=== PATIENT | female | born 1945 | race Caucasian/White ===

== ENCOUNTER 2017-02-09 05:27 | Inpatient (IN) | payer MEDICARE ==
[~2017-02-09] VITALS: Ht 152.4 cm; Wt 70.5 kg
[~2017-02-09 05:27] MED LIST: ACET-2247 PO; AMIO200T44 PO; ASCO500 PO; ASPI81 PO; ATOR40TA28 PO; BUME1TAB17 PO; CHOL200016 PO; CIP250 PO; GABA-533 PO; HEPA500018 SQ; HYDR-305 PO; LACT1TAB11 PO; METO25 PO; MULT-1203 PO; OXYB5 PO; ROPI1TAB11 PO; ZINC220 PO
[2017-02-09] MEDS ORDERED: SODIUM CHLORIDE 0.9% 1,000 ML IV ONE ×2 (05:30→06:38)
[2017-02-09] MEDS ORDERED: MINERAL OIL 10 ML VIAL TP ONE (06:38)
[2017-02-09] MEDS ORDERED: BUPIVACAINE HCL/PF 0.25% 30 ML VIAL ONE (06:39)
[2017-02-09 07:33] LABS: GLUCOSE,POINT OF CARE 98 MG/DL (70-110)
[2017-02-09] MEDS ORDERED: BUPIVACAINE 0.25%/EPI 1:200,000/PF 10 ML VIAL ONE ×4 (07:37→08:07)
[2017-02-09] MEDS ORDERED: HYDROmorphone 2 MG/ML SYRINGE IVP PRN (09:00)
[2017-02-09] MEDS ORDERED: OxyCODONE HCL/ACETAMINOPHEN 5-325 MG TABLET PO PRN ×2 (09:00→11:30)
[2017-02-09] MEDS ORDERED: MEPERIDINE-PF 25 MG/ML SYRINGE IVP PRN (09:00)
[2017-02-09] MEDS ORDERED: PANTOPRAZOLE SODIUM 40 MG DR TABLET PO SCH (09:00)
[2017-02-09] MEDS ORDERED: 0.9% SODIUM CHLORIDE 10 ML SYRINGE IVP PRN (09:00)
[2017-02-09] MEDS ORDERED: ONDANSETRON HCL 4 MG/2 ML VIAL IVP PRN ×2 (09:00→11:30)
[2017-02-09] MEDS ORDERED: FentaNYL CITRATE-PF 100 MCG/2 ML VIAL ONE (09:24)
[2017-02-09] MEDS: FentaNYL CITRATE-PF 100 MCG/2 ML VIAL IVP PRN ×2 (09:29→09:41)
[2017-02-09 10:39] VITALS: BP 113/54
[2017-02-09] MEDS: METOPROLOL TARTRATE 25 MG TABLET PO SCH ×2 (10:50→21:06)
[2017-02-09] MEDS: ENOXAPARIN SODIUM 40 MG/0.4 ML PF SYRINGE SQ SCH (10:51)
[2017-02-09] MEDS ORDERED: ACETAMINOPHEN 325 MG TABLET PO PRN (11:30)
[2017-02-09] MEDS ORDERED: ALBUTEROL SULFATE 2.5 MG/0.5 ML NEB SOLUTION NEB PRN (11:30)
[2017-02-09] MEDS ORDERED: MAGNESIUM HYDROXIDE SUSPENSION 30 ML UDCUP PO PRN (11:30)
[2017-02-09] MEDS ORDERED: DEXTROSE 50%-WATER 25 GM/50 ML SYRINGE IVP PRN (11:45)
[2017-02-09] MEDS: ROPINIRole HCL 1 MG TABLET PO SCH ×2 (12:00→17:57)
[2017-02-09] MEDS: OxyCODONE HCL/ACETAMINOPHEN 5-325 MG TABLET PO PRN (15:26)
[2017-02-09] MEDS: HYDROCODONE/ACETAMINOPHEN 5-325 MG TABLET PO PRN ×3 (16:52→21:12)
[2017-02-09 17:48] LABS: GLUCOSE,POINT OF CARE 113 MG/DL (70-110)
[2017-02-09 17:48] LABS: GLUCOSE,POINT OF CARE 130 MG/DL (70-110)
[2017-02-09 19:28] VITALS: BP 114/52
[2017-02-09] MEDS ORDERED: CIPROFLOXACIN HCL 250 MG TABLET PO SCH (21:00)
[2017-02-09] MEDS ORDERED: OXYBUTYNIN CHLORIDE 5 MG TABLET PO SCH (21:00)
[2017-02-09] MEDS: ZINC SULFATE 220 MG CAPSULE PO SCH (21:06)
[2017-02-09] MEDS: DOCUSATE SODIUM 100 MG CAPSULE PO SCH (21:06)
[2017-02-09] MEDS: GABAPENTIN 400 MG CAPSULE PO SCH (21:06)
[2017-02-09] MEDS ORDERED: EPHEDrine SULFATE 50 MG/ML VIAL IM ONE (21:36)
[2017-02-09] MEDS ORDERED: ONDANSETRON HCL 4 MG/2 ML VIAL IVP ONE (21:36)
[2017-02-09] MEDS ORDERED: LIDOCAINE HCL/PF 2% 5 ML VIAL IM ONE (21:36)
[2017-02-09] MEDS ORDERED: PROPOFOL 1% 20 ML VIAL IVP ONE (21:36)
[2017-02-09] MEDS ORDERED: FentaNYL CITRATE-PF 100 MCG/2 ML VIAL IVP ONE (22:27)
[2017-02-09] MEDS ORDERED: MIDAZOLAM HCL 2 MG/2 ML VIAL IVP ONE (22:27)
[2017-02-10] VITALS (7 sets, daily range): BP systolic 113–142; BP diastolic 51–63
[2017-02-10] MEDS: ROPINIRole HCL 1 MG TABLET PO SCH ×5 (00:23→23:14)
[2017-02-10] MEDS: ZOLPIDEM TARTRATE 5 MG TABLET PO PRN (00:31)
[2017-02-10] MEDS: OxyCODONE HCL/ACETAMINOPHEN 5-325 MG TABLET PO PRN ×6 (00:31→23:44)
[2017-02-10 06:28] LABS: BASOPHILS % (AUTO) 0.8 % (0.0-2.0); EOSINOPHILS % (AUTO) 4.5 % (1.0-6.0); HEMATOCRIT 25.7 % (36-46); HEMOGLOBIN 8.4 g/dL (12.0-16.0); LYMPHOCYTES # (AUTO) 1.4 K/uL (1.0-4.8); LYMPHOCYTES % (AUTO) 23.4 % (22.0-44.0); MEAN CORPUSCULAR HEMOGLOBIN 27.5 pg (26.0-34.0); MEAN CORPUSCULAR HGB CONC 32.6 G/dL (31.0-37.0); MEAN CORPUSCULAR VOLUME 84 fL (80-100); MONOCYTES # (AUTO) 0.5 K/uL (0.1-1.0); MONOCYTES % (AUTO) 8.9 % (2.0-9.0); NEUTROPHILS # (AUTO) 3.8 K/uL (1.8-7.7); NEUTROPHILS % (AUTO) 62.4 % (40.0-70.0); PLATELET COUNT (AUTO) 262 K/uL (150-450); RED BLOOD CELL COUNT(AUTO) 3.05 MIL/uL (4.00-5.20); RED CELL DISTRIBUTION WIDTH 17.7 % (11.5-14.5); WHITE BLOOD COUNT (AUTO) 6.1 K/uL (4.5-11.0)
[2017-02-10 06:49] LABS: ALBUMIN 2.7 g/dL (3.4-5.0); BILIRUBIN,TOTAL 0.2 mg/dL (0.1-1.0); CALCIUM, TOTAL 8.4 mg/dL (8.8-10.5); CREATININE 1.54 mg/dL (0.60-1.30); MAGNESIUM 1.9 mg/dL (1.80-2.40); POTASSIUM 5.2 mmol/L (3.5-5.1); TOTAL PROTEIN, SERUM 6.7 g/dL (6.4-8.2)
[2017-02-10] MEDS ORDERED: SODIUM CHLORIDE 0.9% 1,000 ML IV ONE (07:00)
[2017-02-10] MEDS: OXYGEN THERAPY IH SCH (08:00)
[2017-02-10] MEDS: ATORVASTATIN CALCIUM 40 MG TABLET PO SCH (08:16)
[2017-02-10] MEDS: MULTIVITAMINS, THERAPEUTIC TABLET PO SCH (08:16)
[2017-02-10] MEDS: PANTOPRAZOLE SODIUM 40 MG DR TABLET PO SCH (08:16)
[2017-02-10] MEDS: METOPROLOL TARTRATE 25 MG TABLET PO SCH ×2 (08:16→19:37)
[2017-02-10] MEDS: ZINC SULFATE 220 MG CAPSULE PO SCH ×2 (08:16→19:37)
[2017-02-10] MEDS: CHOLECALCIFEROL (VIT D3) 2,000 UNITS TABLET PO SCH (08:16)
[2017-02-10] MEDS: LACTOBACILLUS ACIDOPHILUS/BULGARICUS TABLET PO SCH (08:16)
[2017-02-10] MEDS: ASCORBIC ACID 500 MG TABLET PO SCH (08:16)
[2017-02-10] MEDS: ASPIRIN 81 MG CHEWABLE TABLET PO SCH (08:16)
[2017-02-10] MEDS: BUMETANIDE 1 MG TABLET PO SCH (08:16)
[2017-02-10] MEDS: ENOXAPARIN SODIUM 40 MG/0.4 ML PF SYRINGE SQ SCH (08:17)
[2017-02-10] MEDS: DOCUSATE SODIUM 100 MG CAPSULE PO SCH ×2 (08:19→19:36)
[2017-02-10] MEDS ORDERED: ENOXAPARIN SODIUM 40 MG/0.4 ML PF SYRINGE SQ SCH (09:00)
[2017-02-10] MEDS ORDERED: AMIODARONE HCL 200 MG TABLET PO SCH (09:00)
[2017-02-10 11:36] LABS: GLUCOSE,POINT OF CARE 100 MG/DL (70-110)
[2017-02-10 11:47] LABS: GLUCOSE,POINT OF CARE 95 MG/DL (70-110)
[2017-02-10 12:18] LABS: GLUCOSE,POINT OF CARE 92 MG/DL (70-110)
[2017-02-10 12:38] LABS: RBC MORPHOLOGY COMMENT ABNORMAL RBC MORPH
[2017-02-10] MEDS: GABAPENTIN 400 MG CAPSULE PO SCH (19:36)
[2017-02-11] MEDS: ZOLPIDEM TARTRATE 5 MG TABLET PO PRN (02:00)
[2017-02-11] MEDS: HYDROCODONE/ACETAMINOPHEN 5-325 MG TABLET PO PRN ×2 (02:01→17:08)
[2017-02-11 04:25] VITALS: BP 139/58
[2017-02-11 04:38] LABS: GLUCOSE,POINT OF CARE 106 MG/DL (70-110)
[2017-02-11 04:38] LABS: GLUCOSE,POINT OF CARE 91 MG/DL (70-110)
[2017-02-11] MEDS: OxyCODONE HCL/ACETAMINOPHEN 5-325 MG TABLET PO PRN (05:55)
[2017-02-11] MEDS: ROPINIRole HCL 1 MG TABLET PO SCH ×3 (05:56→17:27)
[2017-02-11 07:30] VITALS: BP 140/58
[2017-02-11] MEDS: OXYGEN THERAPY IH SCH ×2 (08:00→19:56)
[2017-02-11] MEDS: ENOXAPARIN SODIUM 40 MG/0.4 ML PF SYRINGE SQ SCH (08:47)
[2017-02-11] MEDS: LACTOBACILLUS ACIDOPHILUS/BULGARICUS TABLET PO SCH (08:47)
[2017-02-11] MEDS: ZINC SULFATE 220 MG CAPSULE PO SCH ×2 (08:48→19:55)
[2017-02-11] MEDS: METOPROLOL TARTRATE 25 MG TABLET PO SCH ×2 (08:48→19:56)
[2017-02-11] MEDS: DOCUSATE SODIUM 100 MG CAPSULE PO SCH ×2 (08:48→19:56)
[2017-02-11] MEDS: ATORVASTATIN CALCIUM 40 MG TABLET PO SCH (08:48)
[2017-02-11] MEDS: CHOLECALCIFEROL (VIT D3) 2,000 UNITS TABLET PO SCH (08:48)
[2017-02-11] MEDS: BUMETANIDE 1 MG TABLET PO SCH (08:48)
[2017-02-11] MEDS: PANTOPRAZOLE SODIUM 40 MG DR TABLET PO SCH (08:48)
[2017-02-11] MEDS: MULTIVITAMINS, THERAPEUTIC TABLET PO SCH (08:48)
[2017-02-11] MEDS: ASCORBIC ACID 500 MG TABLET PO SCH (08:49)
[2017-02-11] MEDS: ASPIRIN 81 MG CHEWABLE TABLET PO SCH (08:49)
[2017-02-11 11:11] VITALS: BP 148/55
[2017-02-11 11:21] LABS: GLUCOSE,POINT OF CARE 106 MG/DL (70-110)
[2017-02-11] MEDS: INSULIN ASPART 100 UNITS/ML SQ PRN ×2 (11:42→17:09)
[2017-02-11 15:12] LABS: GLUCOSE,POINT OF CARE 108 MG/DL (70-110)
[2017-02-11 16:09] VITALS: BP 156/62
[2017-02-11 19:23] VITALS: BP 150/74
[2017-02-11] MEDS: GABAPENTIN 400 MG CAPSULE PO SCH (19:56)
[2017-02-11] MEDS: MORPHINE SULFATE 2 MG/ML SYRINGE IVP PRN (19:56)
[2017-02-11 22:03] LABS: GLUCOSE,POINT OF CARE 109 MG/DL (70-110)
[2017-02-11 22:03] LABS: GLUCOSE,POINT OF CARE 137 MG/DL (70-110)
[2017-02-11 23:58] VITALS: BP 133/57
[2017-02-12] MEDS: ROPINIRole HCL 1 MG TABLET PO SCH ×5 (00:05→23:54)
[2017-02-12] MEDS: OxyCODONE HCL/ACETAMINOPHEN 5-325 MG TABLET PO PRN ×2 (00:09→05:53)
[2017-02-12 04:51] VITALS: BP 148/63
[2017-02-12 06:28] LABS: GLUCOSE,POINT OF CARE 111 MG/DL (70-110)
[2017-02-12 06:46] LABS: BASOPHILS % (AUTO) 0.4 % (0.0-2.0); EOSINOPHILS % (AUTO) 2.9 % (1.0-6.0); HEMATOCRIT 30.9 % (36-46); HEMOGLOBIN 10.2 g/dL (12.0-16.0); LYMPHOCYTES # (AUTO) 1.3 K/uL (1.0-4.8); MEAN CORPUSCULAR HEMOGLOBIN 27.5 pg (26.0-34.0); MEAN CORPUSCULAR HGB CONC 32.9 G/dL (31.0-37.0); MEAN CORPUSCULAR VOLUME 84 fL (80-100); MONOCYTES # (AUTO) 0.5 K/uL (0.1-1.0); MONOCYTES % (AUTO) 7.4 % (2.0-9.0); NEUTROPHILS # (AUTO) 5.3 K/uL (1.8-7.7); NEUTROPHILS % (AUTO) 71.3 % (40.0-70.0); PLATELET COUNT (AUTO) 305 K/uL (150-450); WHITE BLOOD COUNT (AUTO) 7.4 K/uL (4.5-11.0)
[2017-02-12 07:01] LABS: CALCIUM, TOTAL 9.1 mg/dL (8.8-10.5); CREATININE 1.36 mg/dL (0.60-1.30); POTASSIUM 4.4 mmol/L (3.5-5.1)
[2017-02-12] MEDS: OXYGEN THERAPY IH SCH ×2 (08:00→20:00)
[2017-02-12 08:02] VITALS: BP 138/65
[2017-02-12] MEDS: ENOXAPARIN SODIUM 40 MG/0.4 ML PF SYRINGE SQ SCH (10:01)
[2017-02-12] MEDS: ASPIRIN 81 MG CHEWABLE TABLET PO SCH (10:01)
[2017-02-12] MEDS: METOPROLOL TARTRATE 25 MG TABLET PO SCH ×2 (10:02→20:03)
[2017-02-12] MEDS: MULTIVITAMINS, THERAPEUTIC TABLET PO SCH (10:02)
[2017-02-12] MEDS: ATORVASTATIN CALCIUM 40 MG TABLET PO SCH (10:02)
[2017-02-12] MEDS: HYDROCODONE/ACETAMINOPHEN 5-325 MG TABLET PO PRN ×3 (10:02→20:21)
[2017-02-12] MEDS: ASCORBIC ACID 500 MG TABLET PO SCH (10:02)
[2017-02-12] MEDS: BUMETANIDE 1 MG TABLET PO SCH (10:03)
[2017-02-12] MEDS: LACTOBACILLUS ACIDOPHILUS/BULGARICUS TABLET PO SCH (10:03)
[2017-02-12] MEDS: DOCUSATE SODIUM 100 MG CAPSULE PO SCH ×2 (10:03→20:03)
[2017-02-12] MEDS: PANTOPRAZOLE SODIUM 40 MG DR TABLET PO SCH (10:03)
[2017-02-12] MEDS: CHOLECALCIFEROL (VIT D3) 2,000 UNITS TABLET PO SCH (10:03)
[2017-02-12] MEDS: ZINC SULFATE 220 MG CAPSULE PO SCH ×2 (10:03→20:03)
[2017-02-12 10:50] LABS: RBC MORPHOLOGY COMMENT ABNORMAL RBC MORPH
[2017-02-12 11:38] LABS: GLUCOSE,POINT OF CARE 140 MG/DL (70-110)
[2017-02-12 11:50] VITALS: BP 148/69
[2017-02-12 15:10] VITALS: BP 157/73
[2017-02-12 17:18] LABS: GLUCOSE,POINT OF CARE 97 MG/DL (70-110)
[2017-02-12 19:30] VITALS: BP 132/55
[2017-02-12] MEDS: GABAPENTIN 400 MG CAPSULE PO SCH (20:03)
[2017-02-12 22:33] LABS: GLUCOSE COMMENT 1 Juice/Food/D50 Given; GLUCOSE,POINT OF CARE 128 MG/DL (70-110)
[2017-02-12 23:39] VITALS: BP 141/65
[2017-02-13] MEDS: HYDROCODONE/ACETAMINOPHEN 5-325 MG TABLET PO PRN (00:25)
[2017-02-13] MEDS: OxyCODONE HCL/ACETAMINOPHEN 5-325 MG TABLET PO PRN ×6 (00:31→20:46)
[2017-02-13 03:53] VITALS: BP 130/56
[2017-02-13] MEDS: ROPINIRole HCL 1 MG TABLET PO SCH ×3 (04:59→18:28)
[2017-02-13 05:48] LABS: GLUCOSE COMMENT 1 Juice/Food/D50 Given; GLUCOSE,POINT OF CARE 92 MG/DL (70-110)
[2017-02-13 08:00] VITALS: BP 138/65
[2017-02-13] MEDS: OXYGEN THERAPY IH SCH (08:00)
[2017-02-13] MEDS: BUMETANIDE 1 MG TABLET PO SCH (08:06)
[2017-02-13] MEDS: LACTOBACILLUS ACIDOPHILUS/BULGARICUS TABLET PO SCH (08:06)
[2017-02-13] MEDS: DOCUSATE SODIUM 100 MG CAPSULE PO SCH ×2 (08:06→20:04)
[2017-02-13] MEDS: ASPIRIN 81 MG CHEWABLE TABLET PO SCH (08:06)
[2017-02-13] MEDS: MULTIVITAMINS, THERAPEUTIC TABLET PO SCH (08:07)
[2017-02-13] MEDS: ENOXAPARIN SODIUM 40 MG/0.4 ML PF SYRINGE SQ SCH (08:07)
[2017-02-13] MEDS: ATORVASTATIN CALCIUM 40 MG TABLET PO SCH (08:07)
[2017-02-13] MEDS: PANTOPRAZOLE SODIUM 40 MG DR TABLET PO SCH (08:07)
[2017-02-13] MEDS: METOPROLOL TARTRATE 25 MG TABLET PO SCH ×2 (08:07→20:04)
[2017-02-13] MEDS: ASCORBIC ACID 500 MG TABLET PO SCH (08:07)
[2017-02-13] MEDS: ZINC SULFATE 220 MG CAPSULE PO SCH ×2 (08:07→20:04)
[2017-02-13] MEDS: CHOLECALCIFEROL (VIT D3) 2,000 UNITS TABLET PO SCH (08:07)
[2017-02-13] MEDS: MORPHINE SULFATE 2 MG/ML SYRINGE IVP PRN (08:47)
[2017-02-13 11:02] VITALS: BP 130/62
[2017-02-13 12:17] LABS: GLUCOSE,POINT OF CARE 127 MG/DL (70-110)
[2017-02-13 15:10] VITALS: BP 137/60
[2017-02-13 18:38] LABS: GLUCOSE,POINT OF CARE 96 MG/DL (70-110)
[2017-02-13] MEDS: GABAPENTIN 400 MG CAPSULE PO SCH (20:04)
[2017-02-13 20:06] VITALS: BP 143/66
[2017-02-13 23:30] VITALS: BP 151/69
[2017-02-14] MEDS: OxyCODONE HCL/ACETAMINOPHEN 5-325 MG TABLET PO PRN ×4 (00:37→21:35)
[2017-02-14] MEDS: ROPINIRole HCL 1 MG TABLET PO SCH ×5 (00:38→23:22)
[2017-02-14 04:13] LABS: GLUCOSE,POINT OF CARE 104 MG/DL (70-110)
[2017-02-14 05:14] VITALS: BP 141/67
[2017-02-14 05:56] LABS: BASOPHILS % (AUTO) 0.7 % (0.0-2.0); EOSINOPHILS % (AUTO) 5.9 % (1.0-6.0); HEMATOCRIT 29.3 % (36-46); HEMOGLOBIN 9.7 g/dL (12.0-16.0); LYMPHOCYTES # (AUTO) 1.5 K/uL (1.0-4.8); LYMPHOCYTES % (AUTO) 20.9 % (22.0-44.0); MEAN CORPUSCULAR HEMOGLOBIN 27.7 pg (26.0-34.0); MEAN CORPUSCULAR VOLUME 84 fL (80-100); MONOCYTES # (AUTO) 0.7 K/uL (0.1-1.0); MONOCYTES % (AUTO) 9.7 % (2.0-9.0); NEUTROPHILS # (AUTO) 4.4 K/uL (1.8-7.7); NEUTROPHILS % (AUTO) 62.8 % (40.0-70.0); PLATELET COUNT (AUTO) 275 K/uL (150-450); RED BLOOD CELL COUNT(AUTO) 3.49 MIL/uL (4.00-5.20); RED CELL DISTRIBUTION WIDTH 16.5 % (11.5-14.5)
[2017-02-14] MEDS: MORPHINE SULFATE 2 MG/ML SYRINGE IVP PRN ×2 (05:59→13:19)
[2017-02-14 06:11] LABS: CALCIUM, TOTAL 8.7 mg/dL (8.8-10.5); CREATININE 1.58 mg/dL (0.60-1.30); POTASSIUM 4.2 mmol/L (3.5-5.1)
[2017-02-14 07:19] VITALS: BP 133/65
[2017-02-14] MEDS: DOCUSATE SODIUM 100 MG CAPSULE PO SCH ×2 (08:02→20:27)
[2017-02-14] MEDS: ENOXAPARIN SODIUM 40 MG/0.4 ML PF SYRINGE SQ SCH (08:03)
[2017-02-14] MEDS: MULTIVITAMINS, THERAPEUTIC TABLET PO SCH (08:03)
[2017-02-14] MEDS: ATORVASTATIN CALCIUM 40 MG TABLET PO SCH (08:03)
[2017-02-14] MEDS: ASPIRIN 81 MG CHEWABLE TABLET PO SCH (08:03)
[2017-02-14] MEDS: LACTOBACILLUS ACIDOPHILUS/BULGARICUS TABLET PO SCH (08:04)
[2017-02-14] MEDS: ZINC SULFATE 220 MG CAPSULE PO SCH ×2 (08:04→20:27)
[2017-02-14] MEDS: BUMETANIDE 1 MG TABLET PO SCH (08:04)
[2017-02-14] MEDS: ASCORBIC ACID 500 MG TABLET PO SCH (08:04)
[2017-02-14] MEDS: CHOLECALCIFEROL (VIT D3) 2,000 UNITS TABLET PO SCH (08:04)
[2017-02-14] MEDS: METOPROLOL TARTRATE 25 MG TABLET PO SCH ×2 (08:05→20:28)
[2017-02-14] MEDS: PANTOPRAZOLE SODIUM 40 MG DR TABLET PO SCH (08:05)
[2017-02-14 11:09] VITALS: BP 133/52
[2017-02-14] MEDS: INSULIN ASPART 100 UNITS/ML SQ PRN (12:15)
[2017-02-14 12:48] LABS: GLUCOSE COMMENT 1 Received Meds; GLUCOSE,POINT OF CARE 144 MG/DL (70-110)
[2017-02-14 15:51] VITALS: BP 121/54
[2017-02-14 17:52] LABS: GLUCOSE,POINT OF CARE 95 MG/DL (70-110)
[2017-02-14 19:46] VITALS: BP 122/63
[2017-02-14 20:03] LABS: GLUCOSE,POINT OF CARE 89 MG/DL (70-110)
[2017-02-14] MEDS: GABAPENTIN 400 MG CAPSULE PO SCH (20:27)
[2017-02-14 23:35] VITALS: BP 141/64
[2017-02-15 00:22] LABS: GLUCOSE,POINT OF CARE 121 MG/DL (70-110)
[2017-02-15] MEDS: OxyCODONE HCL/ACETAMINOPHEN 5-325 MG TABLET PO PRN ×5 (03:38→22:20)
[2017-02-15 04:52] VITALS: BP 125/57
[2017-02-15 05:57] LABS: GLUCOSE,POINT OF CARE 113 MG/DL (70-110)
[2017-02-15] MEDS: ROPINIRole HCL 1 MG TABLET PO SCH ×3 (06:31→17:43)
[2017-02-15 07:08] VITALS: BP 128/62
[2017-02-15] MEDS: OXYGEN THERAPY IH SCH ×2 (08:00→21:08)
[2017-02-15] MEDS: BUMETANIDE 1 MG TABLET PO SCH (08:19)
[2017-02-15] MEDS: PANTOPRAZOLE SODIUM 40 MG DR TABLET PO SCH (08:19)
[2017-02-15] MEDS: CHOLECALCIFEROL (VIT D3) 2,000 UNITS TABLET PO SCH (08:19)
[2017-02-15] MEDS: LACTOBACILLUS ACIDOPHILUS/BULGARICUS TABLET PO SCH (08:19)
[2017-02-15] MEDS: METOPROLOL TARTRATE 25 MG TABLET PO SCH ×2 (08:19→21:09)
[2017-02-15] MEDS: MULTIVITAMINS, THERAPEUTIC TABLET PO SCH (08:19)
[2017-02-15] MEDS: ATORVASTATIN CALCIUM 40 MG TABLET PO SCH (08:19)
[2017-02-15] MEDS: DOCUSATE SODIUM 100 MG CAPSULE PO SCH ×2 (08:19→21:09)
[2017-02-15] MEDS: ASCORBIC ACID 500 MG TABLET PO SCH (08:19)
[2017-02-15] MEDS: ZINC SULFATE 220 MG CAPSULE PO SCH ×2 (08:19→21:09)
[2017-02-15] MEDS: ASPIRIN 81 MG CHEWABLE TABLET PO SCH (08:20)
[2017-02-15] MEDS: ENOXAPARIN SODIUM 40 MG/0.4 ML PF SYRINGE SQ SCH (08:20)
[2017-02-15 11:07] LABS: GLUCOSE,POINT OF CARE 104 MG/DL (70-110)
[2017-02-15 11:29] VITALS: BP 133/65
[2017-02-15 16:17] VITALS: BP 117/53
[2017-02-15 18:02] LABS: GLUCOSE,POINT OF CARE 103 MG/DL (70-110)
[2017-02-15 20:25] VITALS: BP 124/58
[2017-02-15] MEDS: GABAPENTIN 400 MG CAPSULE PO SCH (21:09)
[2017-02-15] MEDS: MORPHINE SULFATE 2 MG/ML SYRINGE IVP PRN (22:24)
[2017-02-15 23:15] VITALS: BP 137/66
[2017-02-16 00:03] LABS: GLUCOSE,POINT OF CARE 108 MG/DL (70-110)
[2017-02-16] MEDS: ROPINIRole HCL 1 MG TABLET PO SCH ×3 (00:24→11:53)
[2017-02-16] MEDS: OxyCODONE HCL/ACETAMINOPHEN 5-325 MG TABLET PO PRN ×4 (02:23→18:48)
[2017-02-16 05:57] VITALS: BP 121/58
[2017-02-16 06:53] LABS: GLUCOSE,POINT OF CARE 106 MG/DL (70-110)
[2017-02-16 08:00] VITALS: BP 125/60
[2017-02-16] MEDS: OXYGEN THERAPY IH SCH (08:00)
[2017-02-16] MEDS: ZINC SULFATE 220 MG CAPSULE PO SCH ×2 (08:19→19:49)
[2017-02-16] MEDS: ATORVASTATIN CALCIUM 40 MG TABLET PO SCH (08:20)
[2017-02-16] MEDS: PANTOPRAZOLE SODIUM 40 MG DR TABLET PO SCH (08:20)
[2017-02-16] MEDS: METOPROLOL TARTRATE 25 MG TABLET PO SCH ×2 (08:20→19:53)
[2017-02-16] MEDS: BUMETANIDE 1 MG TABLET PO SCH (08:20)
[2017-02-16] MEDS: ASCORBIC ACID 500 MG TABLET PO SCH (08:20)
[2017-02-16] MEDS: LACTOBACILLUS ACIDOPHILUS/BULGARICUS TABLET PO SCH (08:21)
[2017-02-16] MEDS: DOCUSATE SODIUM 100 MG CAPSULE PO SCH ×2 (08:21→19:50)
[2017-02-16] MEDS: CHOLECALCIFEROL (VIT D3) 2,000 UNITS TABLET PO SCH (08:21)
[2017-02-16] MEDS: HYDROCODONE/ACETAMINOPHEN 5-325 MG TABLET PO PRN (08:21)
[2017-02-16] MEDS: ENOXAPARIN SODIUM 40 MG/0.4 ML PF SYRINGE SQ SCH (08:21)
[2017-02-16] MEDS: ASPIRIN 81 MG CHEWABLE TABLET PO SCH (08:21)
[2017-02-16] MEDS: MULTIVITAMINS, THERAPEUTIC TABLET PO SCH (08:21)
[2017-02-16 11:50] VITALS: BP 120/58
[2017-02-16 11:58] LABS: GLUCOSE,POINT OF CARE 105 MG/DL (70-110)
[2017-02-16 16:12] VITALS: BP 118/61
[2017-02-16 17:31] LABS: GLUCOSE,POINT OF CARE 128 MG/DL (70-110)
[2017-02-16] MEDS: GABAPENTIN 400 MG CAPSULE PO SCH (19:50)
[2017-02-16 20:00] VITALS: BP 128/59
== END 2017-02-16 21:10 | DRG 904 ==
LOC: SURGERY 05:27 → 6N 09:36
PROVIDERS: ADMIT Surgery Plastic and Reconstructive Surgery; ATTEND Internal Medicine
PROC: 0KBQ0ZZ Excision of Right Upper Leg Muscle, Open Approach (ICD-10-PCS; 2017-02-09)
PROC: 0HRHX74 Replacement of Right Upper Leg Skin with Autologous Tissue Substitute, Partial Thickness, External Approach (ICD-10-PCS; principal; 2017-02-09 08:06)
DX: T81.31XA Disruption of external operation (surgical) wound, not elsewhere classified, initial encounter (principal); N17.9 Acute kidney failure, unspecified; I48.91 Unspecified atrial fibrillation; I50.40 Unspecified combined systolic (congestive) and diastolic (congestive) heart failure; D63.8 Anemia in other chronic diseases classified elsewhere; E11.9 Type 2 diabetes mellitus without complications; G89.4 Chronic pain syndrome; I25.10 Atherosclerotic heart disease of native coronary artery without angina pectoris; Z95.1 Presence of aortocoronary bypass graft; Z88.0 Allergy status to penicillin; Z79.2 Long term (current) use of antibiotics; Z79.899 Other long term (current) drug therapy; Z79.82 Long term (current) use of aspirin; Y83.8 Other surgical procedures as the cause of abnormal reaction of the patient, or of later complication, without mention of misadventure at the time of the procedure; Y92.89 Other specified places as the place of occurrence of the external cause
CPT/HCPCS: 82962; 83735; 87081; 88304; 93005; J0690; J1650; J2250; J2270; J2405; J2704; J3010; J3490; J7030